=== PATIENT | female | born 1980 | race African-American/Black ===

== ENCOUNTER 2018-05-07 22:17 | Emergency (ER) | payer OTHER ==
[~2018-05-07] VITALS: Ht 162.6 cm; Wt 77.1 kg
[~2018-05-07 22:17] MED LIST: ACETAMINOPHEN-1 EAC2 PO; ADIPEX-P37.5 MG PO; AMBIEN 5 MG TABL5 M1; BELVIQ10 MG PO; CARAFATE 1 GM TA1 GM PO; CELEXA10 MG PO; COLACE100 MG PO; CYMBALTA60 MG PO; FLAGYL500 MG PO; FLEXERIL PO; HYDROCODONE-AP1 EAC6 PO; HYDROCODONE-APA1 TA1 PO; IBUPROFEN 800800 M1 PO; MACROBID 100 M100 M2 PO; MEDROLDOSEPACK PO; MIRALAX17 GM PO; MOBIC15 MG PO; NAPROSYN500 MG PO; NEURONTIN 300300 M1 PO; NORCO 5-325 TA1 EACH PO; ONDANSETRON HCL4 M2 PO; PERCOCET 5-3251 EACH PO; PERCOCET PO; PRILOSEC 20 MG20 MG; REGLAN 10 MG TA10 MG PO; TOPAMAX50 MG PO; TRETIN X TP
[2018-05-07] MEDS ORDERED: AMOXICILLIN 50500 MG PO (23:07)
[2018-05-07 23:10] VITALS: BP 114/80
== END 2018-05-07 23:12 | disposition home or self-care (01) ==
LOC: M.ERS 22:17
DX: K04.7 Periapical abscess without sinus (principal); G89.29 Other chronic pain; M54.9 Dorsalgia, unspecified; Z90.710 Acquired absence of both cervix and uterus

== ENCOUNTER 2018-08-17 14:10 | Emergency (ER) | payer OTHER ==
[~2018-08-17] VITALS: Ht 162.6 cm; Wt 77.1 kg
[~2018-08-17 14:10] MED LIST changes: +AMOXICILLIN 50500 MG PO
[2018-08-17] MEDS ORDERED: TESSALON PERLE100 MG PO (15:17)
[2018-08-17] MEDS ORDERED: ZPAK PO (15:17)
[2018-08-17] MEDS ORDERED: MEDROL DOSPAK21 TA1 PO (15:17)
[2018-08-17 15:35] VITALS: BP 107/65
== END 2018-08-17 15:37 | disposition home or self-care (01) ==
LOC: M.ERS 14:10
DX: J40 Bronchitis, not specified as acute or chronic (principal); M54.9 Dorsalgia, unspecified; G89.29 Other chronic pain; Z90.710 Acquired absence of both cervix and uterus